=== PATIENT | female | born 1965 | race Caucasian/White ===

== ENCOUNTER 2023-06-14 08:56 | Inpatient (IN) | payer SELFPAY ==
[2023-06-14] MEDS ORDERED: Ondansetron PF 4 MG/2 ML Vial ONE (09:16)
[2023-06-14] MEDS ORDERED: Morphine 4 MG/ML VIAL ONE (09:16)
[2023-06-14] MEDS ORDERED: LevoFLOXacin 750 mg/D5W 150 ml Premix Bag ONE (09:32)
[2023-06-14] MEDS ORDERED: LevoFLOXacin D5W 500 mg (100 mL) BAG ONE (09:33)
[2023-06-14 09:51] LABS: Globulin 5.2 g/dL (2.4-3.5); Hematocrit 52.1 % (36.0-47.0); Hemoglobin 18.1 g/dL (12.0-16.0); Mean Corpuscular HGB CONC 34.7 g/dL (32.0-36.0); Mean Corpuscular Hemoglobin 28.3 pg (27.0-31.0); Mean Corpuscular Volume 81.5 fL (78.0-98.0); Platelet Count 386 10x3/uL (130-400); RBC Distribution Width 13.2 % (11.5-14.5); Red Blood Cell (RBC) Count 6.39 mill/uL (4.20-5.40)
[2023-06-14 09:53] LABS: Lymphocytes 7 % (21-51); Monocytes 7 % (0-10); Neutrophil 85 % (42-75); Platelet Adequacy Comment Platelets Normal
[2023-06-14 09:55] LABS: ALT (SGPT) 23 U/L (8-55); AST (SGOT) 21 U/L (5-34); Albumin 3.8 g/dL (3.5-5.0); Alkaline Phosphatase 185 U/L (40-110); Anion Gap 17 mmol/L (10-20); BUN (Urea Nitrogen) 11 mg/dL (9.8-20.1); Bilirubin, Total 2.5 mg/dL (0.2-1.2); Calc. Creatinine Clearance 0 mL/min (70-130); Calcium 11.1 mg/dL (7.8-10.44); Carbon Dioxide 22 mmol/L (22-29); Chloride 101 mmol/L (98-107); Estimated GFR 57; Glucose 115 mg/dL (70-105); Lipase 19 U/L (8-78); Potassium 4.1 mmol/L (3.5-5.1); Sodium 136 mmol/L (136-145)
[2023-06-14 10:37] LABS: Troponin I 0.018 ng/mL (< 0.028)
[2023-06-14 11:23] LABS: Bacteria/HPF None Seen HPF (None Seen); Bilirubin Negative (Negative); Blood, Urine Trace (Negative); CAUTI Indications for Culture Pelvic or flank pain; Clarity Clear (Clear); Glucose, Urine (Dipstick) Normal (Negative); Ketone, Urine Negative (Negative); Leukocyte 25 Leu/uL (Negative); Nitrite Negative (Negative); Protein, Urine (Dipstick) 30 mg/dL (Neg-Trace); RBC/HPF 21-50 HPF (0-3); Squamous Epithelial 0-3 HPF (0-3); Urobilinogen Normal mg/dL (Less than 2); pH, Urine 6.5 (5.0-9.0)
[2023-06-14 11:24] LABS: Specific Gravity, Urine 1.018 (1.002-1.036)
[2023-06-14 11:26] LABS: Urine Culture Reflex No No
[2023-06-14] MEDS ORDERED: Iopamidol-370 76% 500 ML MDV (1 ML CHARGE) ONE (11:42)
[2023-06-14] MEDS ORDERED: Ondansetron ODT 4 MG TAB PO PRN (12:27)
[2023-06-14] MEDS ORDERED: Calcium Carbonate 500 MG ChewTAB PO PRN (12:27)
[2023-06-14] MEDS ORDERED: Ondansetron PF 4 MG/2 ML Vial IVP PRN (12:27)
[2023-06-14] MEDS ORDERED: Morphine 4 MG/ML VIAL SLOW IVP PRN (12:40)
[2023-06-14 13:54] VITALS: BMI 35.2
[2023-06-14] MEDS: Lactated Ringer's 1,000 ML IV SCH (14:21)
[2023-06-14] MEDS ORDERED: Ibuprofen 800 MG TAB PO PRN (17:20)
[2023-06-14] MEDS: metroNIDAZOLE 500 MG in Premix 1 BAG IVPB SCH (20:29)
[2023-06-15 05:52] LABS: #Basophils 0.07 10x3/uL (0.0-0.2); %Basophils 0.3 % (0.0-1.0); %Eosinophils 0.3 % (0.0-10.0); %Lymphocytes 5.8 % (21.0-51.0); %Monocytes 8.8 % (0.0-10.0); %Neutrophils 83.3 % (42.0-75.0); Hematocrit 45.2 % (36.0-47.0); Hemoglobin 15.1 g/dL (12.0-16.0); Mean Corpuscular HGB CONC 33.4 g/dL (32.0-36.0); Mean Corpuscular Hemoglobin 29.2 pg (27.0-31.0); Mean Corpuscular Volume 87.3 fL (78.0-98.0); Mean Platelet Volume 10.5 fL (7.4-10.4); Platelet Count 303 10x3/uL (130-400); RBC Distribution Width 13.7 % (11.5-14.5); Red Blood Cell (RBC) Count 5.18 mill/uL (4.20-5.40)
[2023-06-15 06:14] LABS: Globulin 4.2 g/dL (2.4-3.5)
[2023-06-15] MEDS: Lactated Ringer's 1,000 ML IV SCH (06:14)
[2023-06-15 06:18] LABS: ALT (SGPT) 23 U/L (8-55); AST (SGOT) 21 U/L (5-34); Albumin 2.8 g/dL (3.5-5.0); Alkaline Phosphatase 167 U/L (40-110); Anion Gap 17 mmol/L (10-20); BUN (Urea Nitrogen) 15 mg/dL (9.8-20.1); Bilirubin, Total 2.7 mg/dL (0.2-1.2); Calc. Creatinine Clearance 102 mL/min (70-130); Calcium 9.6 mg/dL (7.8-10.44); Carbon Dioxide 21 mmol/L (22-29); Chloride 101 mmol/L (98-107); Estimated GFR 77; Glucose 84 mg/dL (70-105); Potassium 3.9 mmol/L (3.5-5.1); Sodium 135 mmol/L (136-145)
[2023-06-15] MEDS: Pantoprazole 40 MG VIAL IVP SCH (09:48)
[2023-06-15] MEDS: Enoxaparin 40 MG (0.4 mL) SYRINGE SC SCH (09:48)
[2023-06-15] MEDS: LevoFLOXacin 750 mg/D5W 750 MG in Premix 1 BAG IVPB SCH (09:48)
[2023-06-15 18:41] LABS: Bacteria/HPF None Seen HPF (None Seen); Bilirubin 1+ (Negative); Blood, Urine 1+ (Negative); CAUTI Indications for Culture Acute Hematuria; Clarity Turbid (Clear); Glucose, Urine (Dipstick) Normal (Negative); Ketone, Urine Negative (Negative); Leukocyte 500 Leu/uL (Negative); Nitrite Negative (Negative); Protein, Urine (Dipstick) 70 mg/dL (Neg-Trace); RBC/HPF 0-3 HPF (0-3); Specific Gravity, Urine 1.022 (1.002-1.036); WBC/HPF 21-50 HPF (0-3)
[2023-06-15 18:43] LABS: Urine Culture Reflex Yes Yes
[2023-06-16] MEDS: Acetaminophen 325 MG (10.15 ML) UDCUP PO PRN (02:04)
[2023-06-16 05:55] LABS: Hematocrit 40.3 % (36.0-47.0); Hemoglobin 13.5 g/dL (12.0-16.0); Mean Corpuscular HGB CONC 33.5 g/dL (32.0-36.0); Mean Corpuscular Hemoglobin 28.4 pg (27.0-31.0); Mean Corpuscular Volume 84.8 fL (78.0-98.0); Mean Platelet Volume 10.3 fL (7.4-10.4); Platelet Count 207 10x3/uL (130-400); RBC Distribution Width 13.5 % (11.5-14.5); Red Blood Cell (RBC) Count 4.75 mill/uL (4.20-5.40)
[2023-06-16 06:16] LABS: Globulin 3.7 g/dL (2.4-3.5)
[2023-06-16 06:20] LABS: Lactic Acid 2.9 mmol/L (0.5-2.2)
[2023-06-16 06:23] LABS: Band 19 % (5-11); Large Platelets 10.9 % (0-5); Metamyelocyte 1 % (0-0); Monocytes 3 % (0-10); Neutrophil 77 % (42-75); Platelet Adequacy Comment Platelets Normal; RBC Morphology Within Normal Limits; Smudge Cells 8.9 %
[2023-06-16 06:27] LABS: ALT (SGPT) 25 U/L (8-55); AST (SGOT) 63 U/L (5-34); Albumin 2.4 g/dL (3.5-5.0); Alkaline Phosphatase 327 U/L (40-110); Anion Gap 15 mmol/L (10-20); BUN (Urea Nitrogen) 18 mg/dL (9.8-20.1); Calc. Creatinine Clearance 60 mL/min (70-130); Calcium 9.6 mg/dL (7.8-10.44); Carbon Dioxide 19 mmol/L (22-29); Chloride 105 mmol/L (98-107); Estimated GFR 41; Glucose 90 mg/dL (70-105); Potassium 2.9 mmol/L (3.5-5.1); Protein, Total 6.1 g/dL (6.0-8.3); Sodium 136 mmol/L (136-145)
[2023-06-16] MEDS ORDERED: Lactated Ringer's 1,000 ML IV SCH (07:00)
[2023-06-16] MEDS: Potassium Chloride 20 MEQ TAB PO SCH ×2 (07:48→14:23)
[2023-06-16] MEDS: Lactated Ringer's 1,000 ML IV SCH ×3 (07:49→16:38)
[2023-06-16] MEDS: Acetaminophen 500 MG TAB PO SCH (07:49)
[2023-06-16] MEDS ORDERED: Acetaminophen 500 MG TAB PO PRN (08:00)
[2023-06-16] MEDS ORDERED: Acetaminophen 325 MG (10.15 ML) UDCUP PO SCH (08:00)
[2023-06-16] MEDS: LevoFLOXacin 750 MG TAB PO SCH (09:27)
[2023-06-16] MEDS: Lactated Ringer's 500 ML IV SCH (10:12)
[2023-06-16 11:48] VITALS: BMI 35.2
[2023-06-16 12:31] LABS: Lactic Acid 3.1 mmol/L (0.5-2.2)
[2023-06-16 12:32] LABS: Globulin 3.4 g/dL (2.4-3.5)
[2023-06-16 12:36] LABS: ALT (SGPT) 26 U/L (8-55); AST (SGOT) 61 U/L (5-34); Albumin 2.2 g/dL (3.5-5.0); Alkaline Phosphatase 191 U/L (40-110); Anion Gap 15 mmol/L (10-20); BUN (Urea Nitrogen) 20 mg/dL (9.8-20.1); Bilirubin, Total 3.7 mg/dL (0.2-1.2); Calc. Creatinine Clearance 58 mL/min (70-130); Calcium 9.1 mg/dL (7.8-10.44); Carbon Dioxide 16 mmol/L (22-29); Chloride 107 mmol/L (98-107); Estimated GFR 39; Glucose 81 mg/dL (70-105); Potassium 3.4 mmol/L (3.5-5.1); Protein, Total 5.6 g/dL (6.0-8.3); Sodium 135 mmol/L (136-145)
[2023-06-16] MEDS: metroNIDAZOLE 500 MG TAB PO SCH (14:23)
[2023-06-16] MEDS: metroNIDAZOLE 500 MG in Premix 1 BAG IVPB SCH (21:20)
[2023-06-17 09:00] LABS: Globulin 3.6 g/dL (2.4-3.5)
[2023-06-17] MEDS ORDERED: Pantoprazole DR 40 MG TAB PO SCH (09:00)
[2023-06-17] MEDS: LevoFLOXacin 750 mg/D5W 750 MG in Premix 1 BAG IVPB SCH (09:03)
[2023-06-17 09:04] LABS: ALT (SGPT) 26 U/L (8-55); AST (SGOT) 56 U/L (5-34); Albumin 2.2 g/dL (3.5-5.0); Alkaline Phosphatase 151 U/L (40-110); Anion Gap 15 mmol/L (10-20); BUN (Urea Nitrogen) 27 mg/dL (9.8-20.1); Bilirubin, Total 2.3 mg/dL (0.2-1.2); Calc. Creatinine Clearance 68 mL/min (70-130); Carbon Dioxide 20 mmol/L (22-29); Chloride 107 mmol/L (98-107); Estimated GFR 47; Glucose 66 mg/dL (70-105); Potassium 4.5 mmol/L (3.5-5.1); Protein, Total 5.8 g/dL (6.0-8.3); Sodium 137 mmol/L (136-145)
[2023-06-17] MEDS: Furosemide 40 MG (4 mL) VIAL SLOW IVP SCH (09:04)
[2023-06-17 09:17] LABS: Hematocrit 37.1 % (36.0-47.0); Hemoglobin 12.1 g/dL (12.0-16.0); Mean Corpuscular HGB CONC 32.6 g/dL (32.0-36.0); Platelet Count 191 10x3/uL (130-400); RBC Distribution Width 14.4 % (11.5-14.5); Red Blood Cell (RBC) Count 4.17 mill/uL (4.20-5.40)
[2023-06-17] MEDS: Pantoprazole 40 MG VIAL IVP SCH (09:22)
[2023-06-17 10:04] LABS: Band 16 % (5-11); Burr Cells SLIGHT = 2-5 cells HPF (0-1); Lymphocytes 3 % (21-51); Monocytes 5 % (0-10); Neutrophil 76 % (42-75); Platelet Adequacy Comment Platelets Normal; Poikilocytosis MODERATE=16-30 cells HPF (0-5)
[2023-06-18 05:25] LABS: Hematocrit 38.8 % (36.0-47.0); Hemoglobin 12.8 g/dL (12.0-16.0); Mean Corpuscular Hemoglobin 28.9 pg (27.0-31.0); Mean Corpuscular Volume 87.6 fL (78.0-98.0); Mean Platelet Volume 11.7 fL (7.4-10.4); Platelet Count 191 10x3/uL (130-400); RBC Distribution Width 14.1 % (11.5-14.5); Red Blood Cell (RBC) Count 4.43 mill/uL (4.20-5.40)
[2023-06-18 05:27] LABS: Globulin 3.6 g/dL (2.4-3.5)
[2023-06-18 05:32] LABS: ALT (SGPT) 21 U/L (8-55); AST (SGOT) 41 U/L (5-34); Alkaline Phosphatase 159 U/L (40-110); Anion Gap 12 mmol/L (10-20); BUN (Urea Nitrogen) 29 mg/dL (9.8-20.1); Calc. Creatinine Clearance 91 mL/min (70-130); Carbon Dioxide 26 mmol/L (22-29); Chloride 104 mmol/L (98-107); Estimated GFR 66; Glucose 107 mg/dL (70-105); Potassium 4.1 mmol/L (3.5-5.1); Protein, Total 5.6 g/dL (6.0-8.3); Sodium 138 mmol/L (136-145)
[2023-06-18 06:27] LABS: Band 10 % (5-11); Burr Cells SLIGHT = 2-5 cells HPF (0-1); Lymphocytes 2 % (21-51); Monocytes 6 % (0-10); Neutrophil 82 % (42-75); Platelet Adequacy Comment Platelets Normal; Smudge Cells 6.9 %
[2023-06-18] MEDS: LevoFLOXacin 750 mg/D5W 750 MG in Premix 1 BAG IVPB SCH (09:02)
[2023-06-18] MEDS ORDERED: Morphine 2 MG/ML VIAL ONE (11:44)
[2023-06-18] MEDS: Labetalol HCl 100 MG/20 ML VIAL SLOW IVP PRN (14:10)
[2023-06-18] MEDS ORDERED: hydrALAZINE 20 MG/ML VIAL SLOW IVP PRN (17:01)
[2023-06-18] MEDS: NIFEdipine XL 30 MG ER.TAB PO SCH (17:46)
[2023-06-18] MEDS: Morphine 2 MG/ML VIAL SLOW IVP SCH (17:47)
[2023-06-19 05:38] LABS: Hemoglobin 12.3 g/dL (12.0-16.0); Mean Corpuscular HGB CONC 33.2 g/dL (32.0-36.0); Mean Corpuscular Hemoglobin 28.6 pg (27.0-31.0); Mean Platelet Volume 11.2 fL (7.4-10.4); Platelet Count 198 10x3/uL (130-400); RBC Distribution Width 14.3 % (11.5-14.5)
[2023-06-19 05:45] LABS: Globulin 3.5 g/dL (2.4-3.5)
[2023-06-19 05:49] LABS: ALT (SGPT) 18 U/L (8-55); AST (SGOT) 31 U/L (5-34); Albumin 2.1 g/dL (3.5-5.0); Alkaline Phosphatase 155 U/L (40-110); Anion Gap 14 mmol/L (10-20); BUN (Urea Nitrogen) 22 mg/dL (9.8-20.1); Bilirubin, Total 0.9 mg/dL (0.2-1.2); Calc. Creatinine Clearance 117 mL/min (70-130); Calcium 8.6 mg/dL (7.8-10.44); Carbon Dioxide 24 mmol/L (22-29); Chloride 105 mmol/L (98-107); Estimated GFR 90; Glucose 88 mg/dL (70-105); Potassium 3.3 mmol/L (3.5-5.1); Protein, Total 5.6 g/dL (6.0-8.3); Sodium 140 mmol/L (136-145)
[2023-06-19 06:19] LABS: Eosinophils 2 % (0-10); Lymphocytes 3 % (21-51); Monocytes 6 % (0-10); Myelocyte 1 % (0-0); Neutrophil 87 % (42-75); Platelet Adequacy Comment Platelets Normal; RBC Morphology Within Normal Limits
[2023-06-19] MEDS: Potassium Chloride 20 MEQ TAB PO SCH (06:51)
[2023-06-19] MEDS: NIFEdipine XL 30 MG ER.TAB PO SCH (08:46)
[2023-06-19] MEDS ORDERED: Glucagon 1 MG/ML KIT ONE (16:07)
[2023-06-19] MEDS ORDERED: EPINEPHrine 1 MG/ML VIAL ONE (16:07)
[2023-06-19] MEDS ORDERED: Iopamidol 30 ML ONE (16:08)
[2023-06-19] MEDS ORDERED: Lidocaine 1% (PF) 30 ML VIAL ONE (16:08)
[2023-06-19] MEDS ORDERED: fentaNYL PF 100 MCG/2 ML SYRINGE ONE (16:09)
[2023-06-19] MEDS ORDERED: Rocuronium Bromide 10 MG/ML (10ML VIAL) ONE (16:09)
[2023-06-19] MEDS ORDERED: PROPOFOL 20 ML ONE (16:09)
[2023-06-19] MEDS ORDERED: Lidocaine 1% PF 5 ML VIAL ONE (16:09)
[2023-06-19] MEDS ORDERED: Dexamethasone 4 mg/ml Vial ONE (16:19)
[2023-06-19] MEDS ORDERED: Ondansetron PF 4 MG/2 ML Vial ONE (16:19)
[2023-06-19] MEDS ORDERED: SUGAMMADEX SODIUM 200 MG/2 ML VIAL ONE (16:22)
[2023-06-19] MEDS ORDERED: Bupivacaine PF 0.5% 30 ML VIAL ONE (16:27)
[2023-06-19] MEDS ORDERED: Promethazine HCl 25 MG/ML VIAL IM PRN (17:12)
[2023-06-19] MEDS ORDERED: Ondansetron HCl/PF 4 MG/2 ML Vial IVP PRN (17:12)
[2023-06-19] MEDS: D5 1/2 NS w/20 mEq KCL 1,000 ML IV SCH (19:51)
[2023-06-19] MEDS: Ketorolac Tromethamine 30 MG (1 mL) VIAL IVP SCH (19:51)
[2023-06-19] MEDS: Acetaminophen 500 MG TAB PO SCH (22:13)
[2023-06-20 03:56] LABS: #Basophils 0.06 10x3/uL (0.0-0.2); #Eosinphils Less than 0.03 10x3/uL (0.0-0.7); %Basophils 0.4 % (0.0-1.0); %Eosinophils 0.1 % (0.0-10.0); %Lymphocytes 8.9 % (21.0-51.0); %Monocytes 5.6 % (0.0-10.0); %Neutrophils 82.5 % (42.0-75.0); Hematocrit 38.2 % (36.0-47.0); Hemoglobin 12.8 g/dL (12.0-16.0); Mean Corpuscular HGB CONC 33.5 g/dL (32.0-36.0); Mean Corpuscular Hemoglobin 28.8 pg (27.0-31.0); Mean Corpuscular Volume 85.8 fL (78.0-98.0); Platelet Count 197 10x3/uL (130-400); RBC Distribution Width 14.5 % (11.5-14.5); Red Blood Cell (RBC) Count 4.45 mill/uL (4.20-5.40)
[2023-06-20 04:36] LABS: ALT (SGPT) 22 U/L (8-55); AST (SGOT) 44 U/L (5-34); Albumin 2.2 g/dL (3.5-5.0); Alkaline Phosphatase 143 U/L (40-110); Anion Gap 14 mmol/L (10-20); BUN (Urea Nitrogen) 13 mg/dL (9.8-20.1); Bilirubin, Total 0.9 mg/dL (0.2-1.2); Calc. Creatinine Clearance 119 mL/min (70-130); Calcium 8.3 mg/dL (7.8-10.44); Carbon Dioxide 24 mmol/L (22-29); Chloride 104 mmol/L (98-107); Estimated GFR 92; Globulin 3.7 g/dL (2.4-3.5); Glucose 150 mg/dL (70-105); Potassium 3.9 mmol/L (3.5-5.1); Protein, Total 5.9 g/dL (6.0-8.3); Sodium 138 mmol/L (136-145)
[2023-06-20] MEDS: traMADol HCl 50 MG TAB PO PRN (08:21)
[2023-06-20] MEDS: Enoxaparin 40 MG (0.4 mL) SYRINGE SC SCH (10:43)
[2023-06-20] MEDS ORDERED: Ibuprofen 600 MG TAB PO PRN (12:00)
[2023-06-21 05:58] LABS: Hematocrit 38.3 % (36.0-47.0); Hemoglobin 12.5 g/dL (12.0-16.0); Mean Corpuscular HGB CONC 32.6 g/dL (32.0-36.0); Mean Corpuscular Volume 85.9 fL (78.0-98.0); Platelet Count 215 10x3/uL (130-400); RBC Distribution Width 14.8 % (11.5-14.5); Red Blood Cell (RBC) Count 4.46 mill/uL (4.20-5.40)
[2023-06-21 06:11] LABS: ALT (SGPT) 16 U/L (8-55); AST (SGOT) 27 U/L (5-34); Albumin 2.1 g/dL (3.5-5.0); Alkaline Phosphatase 128 U/L (40-110); Anion Gap 11 mmol/L (10-20); BUN (Urea Nitrogen) 16 mg/dL (9.8-20.1); Bilirubin, Total 0.7 mg/dL (0.2-1.2); Calc. Creatinine Clearance 117 mL/min (70-130); Calcium 8.5 mg/dL (7.8-10.44); Carbon Dioxide 26 mmol/L (22-29); Chloride 104 mmol/L (98-107); Estimated GFR 90; Globulin 3.6 g/dL (2.4-3.5); Glucose 88 mg/dL (70-105); Potassium 3.4 mmol/L (3.5-5.1); Protein, Total 5.7 g/dL (6.0-8.3); Sodium 138 mmol/L (136-145)
[2023-06-21] MEDS ORDERED: Acetaminophen 325 MG TAB PO PRN (06:45)
[2023-06-21 06:46] LABS: Anisocytosis SLIGHT = 6-15 cells HPF (0-5); Band 7 % (5-11); Eosinophils 1 % (0-10); Lymphocytes 11 % (21-51); Macrocytosis SLIGHT = 6-15 cells HPF (0-5); Monocytes 8 % (0-10); Neutrophil 73 % (42-75); Ovalocytes SLIGHT = 2-5 cells HPF (0-1); Platelet Adequacy Comment Platelets Normal; Polychromasia SLIGHT = 2-3 cells HPF (0-2)
[2023-06-21 08:27] VITALS: BP 128/74; TEMP 98.3
[2023-06-21] MEDS: Enoxaparin 40 MG (0.4 mL) SYRINGE SC SCH (08:35)
[2023-06-21] MEDS: Ibuprofen 600 MG TAB PO SCH (08:36)
[2023-06-21] MEDS: Potassium Chloride 20 MEQ TAB PO SCH (08:36)
[2023-06-22] MEDS ORDERED: LevoFLOXacin 500 MG TAB PO SCH (06:00)
== END 2023-06-21 12:15 | disposition home or self-care (01) | DRG 854 ==
LOC: ERS 08:56 → 2NO 11:50 → SJJU 06-20 12:00
PROVIDERS: ADMIT Family Medicine; ATTEND Family Medicine
PROC: 3E03329 Introduction of Other Anti-infective into Peripheral Vein, Percutaneous Approach (ICD-10-PCS; 2023-06-14)
PROC: 0FT44ZZ Resection of Gallbladder, Percutaneous Endoscopic Approach (ICD-10-PCS; principal; 2023-06-19)
PROC: 3E033XZ Introduction of Vasopressor into Peripheral Vein, Percutaneous Approach (ICD-10-PCS; 2023-06-19)
DX: A41.9 Sepsis, unspecified organism (principal); E87.20 Acidosis, unspecified; K50.10 Crohn's disease of large intestine without complications; N17.9 Acute kidney failure, unspecified; K80.00 Calculus of gallbladder with acute cholecystitis without obstruction; E83.52 Hypercalcemia; Z90.710 Acquired absence of both cervix and uterus; D75.1 Secondary polycythemia; I10 Essential (primary) hypertension; R31.29 Other microscopic hematuria; R74.01 Elevation of levels of liver transaminase levels; K82.A1 Gangrene of gallbladder in cholecystitis; Z96.652 Presence of left artificial knee joint
CPT/HCPCS: 36415; 71045; 71046; 74177; 76705; 78226; 80053; 81001; 83605; 83690; 83880; 83970; 84443; 84484; 85025; 87040; 87086; 88304; 93005; 93010; 93306; 96365; 96367; 96375; A9537; C1889; C9113; J0171; J0665; J1100; J1611; J1650; J1885; J1940; J1956; J2001; J2270; J2272; J2405; J2704; J3480; J7120; Q9967